=== PATIENT | female | born 1945 | race American Indian/Alaskan Native ===

== ENCOUNTER 2019-01-20 09:45 | Outpatient (CLI) | payer MEDICARE ==
--- NOTE | 2019-01-23 09:53 | Mammography Report ---
DEXA BONE DENSITY SCAN INDICATION: OSTEOPOROSIS, MENOPAUSAL COMPARISON: None available. LUMBAR SPINE (L1-L4): Bone mineral density (BMD) is 0.712 g/cm2. T-score is -4.0 (standard deviations of Young Adult mean). Z-score is -1.3 (standard deviations of Age Matched mean). RIGHT FEMORAL NECK: Bone mineral density (BMD) is 0.611 g/cm2. T-score is -2.4 (standard deviations of Young Adult mean). Z-score is -0.8 (standard deviations of Age Matched mean). IMPRESSION: 1. WHO Classification: Osteoporosis. Fracture Risk: High. Signer Name: Lee Stern MD Signed: 01/23/2019 9:49 AM Workstation Name: [id number]
--- NOTE | 2019-01-24 10:44 | Mammography Report ---
DIGITAL SCREENING MAMMOGRAM WITH CAD, 01/20/2019 INDICATION: Routine screening mammography. TECHNIQUE: Digital bilateral 2D mammography was obtained in the craniocaudal and mediolateral obliq ue projections. This examination was interpreted with the benefit of Computer-Aided Detection analysi s. COMPARISON: 02/28/2013 FINDINGS: Breast Density: The breasts are heterogeneously dense, which may obscure small masses. There is no evidence of dominant mass, suspicious calcifications or architectural distortion in eithe r breast. IMPRESSION: BI-RADS Category 1: Negative. No mammographic evidence of malignancy. Recommend routine screening m ammography in one year. A "normal" or negative report should not discourage follow up or biopsy of a clinically significant f inding. A written summary of these findings will be mailed to the patient. The patient will be entered into a mammography reporting system which will generate a reminder letter for the patient's next appointmen t at the appropriate interval. The [employer] recommends yearly mammograms starting at age 40 and continuing as l tavia as a woman is in good health. Breast MRI is recommended for women with an approximate 20-25% or greater lifetime risk of breast cancer, including women with a strong family history of breast or ova denisa cancer or who have been treated for Hodgkin's disease. Signer Name: Lee Stern MD Signed: 01/24/2019 10:40 AM Workstation Name: [id number]
== END 2019-01-20 09:46 | disposition home or self-care (01) ==
LOC: SPVWC 09:45
PROVIDERS: ATTEND Internal Medicine
DX: Z12.31 Encounter for screening mammogram for malignant neoplasm of breast (principal); M81.0 Age-related osteoporosis without current pathological fracture; K21.9 Gastro-esophageal reflux disease without esophagitis; J45.909 Unspecified asthma, uncomplicated; Z78.0 Asymptomatic menopausal state; Z90.710 Acquired absence of both cervix and uterus
CPT/HCPCS: 77067; 77080